=== PATIENT | female | born 1955 | race Caucasian/White ===

== ENCOUNTER → 2017-02-17 | Day surgery (SDC) | payer OTHER ==
[~2017-02-17] MED LIST: ALEV220T14 PO; AMLO5TAB2 PO; CALC1TAB63 PO; CHOL1TAB29 PO; D-20TAB3 PO; DOXA1TAB43 PO; IOHEXOL 180 MG/ML 20 ML VIAL (for RAD DIAG) EPIDURAL ONE; LEVOTAB PO; LIDOCAINE HCL 1% 30 ML VIAL NERV BLOCK ONE; MIDAZOLAM HCL 2 MG/2 ML VIAL IV ONE; MONT10TA2 PO; NAPR220T95 PO; PANT40TA3 PO; PROPOFOL 200 MG/20 ML AMP IV ONE; TRIAMCINOLONE ACETONIDE 40 MG/ML VIAL NERV BLOCK ONE
--- NOTE | 2017-02-22 09:23 | M6 ---
cc: LAVEREN CRAWFORD M.D. DATE: 02/17/2017 Date of : 1955 PROCEDURE Fluoroscopically guided right L5-S1 transforaminal epidural steroid injection. History and physical was completed and signed. Consent was signed. Procedure site was marked. Medications were listed and reconciled. Pain score was recorded. Allergies were noted. Time out was taken. Fluoroscopy time was recorded where applicable. Sedation was administered or directed by Dr. Crawford. The patient was given oxygen. The patient was monitored by a registered nurse. Total procedure time was greater than 15 minutes. PROCEDURE NOTE: An IV was started, blood pressure cuff, pulse oximeter and EKG were applied. The patient was placed in the prone position on a Irineo table, sedated with small amounts of Versed and propofol titrated to effect. Vital signs were monitored and remained stable throughout the procedure. The patient remained responsive throughout the procedure. The lumbar area was scrubbed with antimicrobial solution, prepped with 10% Betadine solution, and draped with sterile drapes. Fluoroscopy was used in both the AP and lateral projections to clearly visualize the right L5-S1 neural foramen. Then separate sterile 22 gauge, 3-1/2 inch Chiba needles were advanced under fluoroscopic guidance into the dorsal-most aspect of each foramen. There was negative aspiration for blood or CSF. There were no reported paresthesias by the patient. There was no washout of 2 mL of Omnipaque. Then after waiting approximately 60 seconds, the patient was slowly given 3 mL of 1% Xylocaine, 3 mL of Omnipaque and 60 milligrams of Kenalog at each location. Following this, the patient was taken to the recovery room with stable vital signs, neurologically intact. W. MD BENTLEY King/BHAVIK /9:50 AM /9:16 AM
== END | disposition home or self-care (01) ==
LOC: PHSDC 08:56
PROVIDERS: ATTEND Pain Medicine Interventional Pain Medicine
DX: M54.5 Low back pain (principal); M79.604 Pain in right leg
CPT/HCPCS: 64483; 99152; J2250; J3301; Q9965

== ENCOUNTER → 2017-05-06 | Day surgery (SDC) | payer OTHER ==
[~2017-05-06] MED LIST changes: -CHOL1TAB29 PO; +INCOBOTULINUMTOXINA 100 UNITS VIAL IM ONE; -IOHEXOL 180 MG/ML 20 ML VIAL (for RAD DIAG) EPIDURAL ONE; -LIDOCAINE HCL 1% 30 ML VIAL NERV BLOCK ONE; -MIDAZOLAM HCL 2 MG/2 ML VIAL IV ONE; -NAPR220T95 PO; -PROPOFOL 200 MG/20 ML AMP IV ONE; +SODIUM CHLORIDE 0.9% 10 ML VIAL ONE; -TRIAMCINOLONE ACETONIDE 40 MG/ML VIAL NERV BLOCK ONE
--- NOTE | 2017-05-08 17:08 | M6 ---
cc: LAVERNE BLUM M.D. DATE: 04/17/2017. DATE OF : 1955 PROCEDURE PERFORMED: Injection botulinum toxin type A (Xeomin) right trapezius and posterior cervical musculature. DESCRIPTION OF THE PROCEDURE IN DETAIL: History and physical was completed and signed. Consent was signed. Procedure site was marked. Medications were listed and reconciled. Pain score was recorded. Allergies were noted. Time out was taken. Fluoroscopy time was recorded where applicable. Blood pressure cuff, pulse oximeter were applied. The patient was placed in the sitting position. The skin over the right trapezius and cervical area was prepped with alcohol. The areas of greatest spasticity were identified. A 27-gauge needle was used to inject a total of 160 units of Xeomin at six different locations corresponding to the areas of greatest spasticity. Following this, the patient was observed in the recovery area with stable vital signs prior to being discharged. W. MD BENTLEY King/MAL /10:43 AM /5:09 PM
== END | disposition home or self-care (01) ==
LOC: PHSDC 09:32
PROVIDERS: ATTEND Pain Medicine Interventional Pain Medicine
DX: M25.511 Pain in right shoulder (principal); M62.838 Other muscle spasm; G24.9 Dystonia, unspecified; I10 Essential (primary) hypertension; K21.9 Gastro-esophageal reflux disease without esophagitis; Z79.899 Other long term (current) drug therapy
CPT/HCPCS: 64616; J0588

== ENCOUNTER → 2017-06-12 | Day surgery (SDC) | payer OTHER ==
[~2017-06-12] MED LIST changes: -DOXA1TAB43 PO; +IBUP-232 PO; -INCOBOTULINUMTOXINA 100 UNITS VIAL IM ONE; +KETOROLAC TROMETHAMINE 30 MG/ML (IVP) VIAL IV PUSH ONE; +LIDOCAINE HCL 1% 30 ML VIAL NERV BLOCK ONE; +MEPERIDINE HCL 25 MG/ML VIAL IV ONE; +PROPOFOL 200 MG/20 ML AMP IV ONE; +methylPREDNISolone ACETATE 80 MG/ML VIAL ONE
--- NOTE | 2017-06-15 06:36 | M6 ---
cc: LAVERNE CRAWFORD M.D. DATE 06/12/2017 DATE OF 1955 PROCEDURE Fluoroscopically guided left S1 epidural steroid injection. History and physical was completed and signed. Consent was signed. Procedure site was marked. Medications were listed and reconciled. Pain score was recorded. Allergies were noted. Time out was taken. Fluoroscopy time was recorded where applicable. Sedation was administered or directed by Dr. Crawford. The patient was given oxygen. The patient was monitored by a registered nurse. Total procedure time was greater than 15 minutes. PROCEDURE NOTE IV was started. Blood pressure cuff, pulse oximeter and EKG were applied. The patient was placed in the prone position on a Irineo table, sedated with small amounts of propofol titrated to effect. Vital signs were monitored and remained stable throughout the procedure. The sacral area was prepped with alcohol and 10% Betadine solution and draped with sterile drapes. Fluoroscopy was used to visualize the S1 neural foramen on the left side. A 3-1/2-inch, 22-gauge Chiba needle was advanced into the foramen under fluoroscopic guidance. There was negative aspiration for blood or any other type of fluid and the patient was given 10 mL of 0.5% Xylocaine, 80 mg of Depo-Medrol. Following this the patient was taken to the recovery room with stable vital signs, neurologically intact. W. Lionel Crawford MD WRM/SSB /9:00 AM /6:31 AM
== END | disposition home or self-care (01) ==
LOC: PHSDC 07:22
PROVIDERS: ATTEND Pain Medicine Interventional Pain Medicine
DX: M54.5 Low back pain (principal); M79.661 Pain in right lower leg
CPT/HCPCS: 62323; 99152; J1040; J1885; J2175

== ENCOUNTER → 2017-06-26 | Day surgery (SDC) | payer OTHER ==
[~2017-06-26] MED LIST changes: +LIDOCAINE HCL 1% 30 ML VIAL INFIL ONE; -LIDOCAINE HCL 1% 30 ML VIAL NERV BLOCK ONE; +TRIAMCINOLONE ACETONIDE 40 MG/ML VIAL NERV BLOCK ONE
--- NOTE | 2017-06-30 10:21 | M6 ---
cc: LAVERNE CRAWFORD M.D. DATE: 06/26/2017 DATE OF : 1955 PROCEDURE Fluoroscopically guided L5-S1 interlaminar epidural steroid injection. PROCEDURE NOTE History and physical was completed and signed. Consent was signed. Procedure site was marked. Medications were listed and reconciled. Pain score was recorded. Allergies were noted. Timeout was taken. Fluoroscopy time was recorded where applicable. Sedation was administered or directed by Dr. Crawford. The patient was given oxygen. The patient was monitored by a registered nurse. Total procedure time was greater than 15 minutes. An IV was started, blood pressure cuff, pulse oximeter and EKG were applied. The patient was placed in the prone position on a Irineo table, sedated with small amounts of propofol titrated to effect. Vital signs were monitored and remained stable throughout the procedure. The lumbar area was prepped with alcohol and 10% Betadine solution, draped with sterile drapes. Fluoroscopy was used to visualize the L5-S1 interlaminar space. The skin was infiltrated with 1% Xylocaine using a 27-gauge needle. Then a 3-1/2 inch, 18-gauge Amaya needle was advanced using fluoroscopic guidance and the [id number] technique into the epidural space at L5-S1 slightly to the left of the midline. There was negative aspiration for blood or any other type of fluid and the patient was given 10 mL of 0.5% Xylocaine, 80 mg of Depo-Medrol. Following this the patient was taken to the recovery room with stable vital signs, neurologically intact. W. MD BENTLEY King/TEENA /8:19 AM /10:12 AM
== END | disposition home or self-care (01) ==
LOC: PHSDC 07:11
PROVIDERS: ATTEND Pain Medicine Interventional Pain Medicine
DX: M54.5 Low back pain (principal)
CPT/HCPCS: 62323; 99152; J1040; J1885; J2175; J3301

== ENCOUNTER 2017-10-01 06:04 | Inpatient (IN) | payer OTHER ==
[~2017-10-01] VITALS: Ht 172.7 cm; Wt 70.8 kg
[~2017-10-01 06:04] MED LIST changes: -KETOROLAC TROMETHAMINE 30 MG/ML (IVP) VIAL IV PUSH ONE; -LEVOTAB PO; -LIDOCAINE HCL 1% 30 ML VIAL INFIL ONE; -MEPERIDINE HCL 25 MG/ML VIAL IV ONE; -PANT40TA3 PO; -PROPOFOL 200 MG/20 ML AMP IV ONE; -SODIUM CHLORIDE 0.9% 10 ML VIAL ONE; +TRAM50TA PO; -TRIAMCINOLONE ACETONIDE 40 MG/ML VIAL NERV BLOCK ONE; +ZANT150T2 PO; -methylPREDNISolone ACETATE 80 MG/ML VIAL ONE
[2017-10-01] MEDS ORDERED: SODIUM CHLORID 0.9% 500 ML IV PRN (06:45)
[2017-10-01] MEDS ORDERED: METOPROLOL TARTRATE 25 MG TAB PO PRN (06:45)
[2017-10-01] MEDS ORDERED: LACTATED RINGER'S 1000 ML IV PRN ×2 (06:45)
[2017-10-01] MEDS ORDERED: CHLORHEXIDINE GLUCONATE 2 % 1 PACK (2 CLOTHS) TOPICAL PRN (06:45)
[2017-10-01] MEDS ORDERED: POVIDONE IODINE 5% (ANTISEPSIS KIT) 4 APPLICATIONS EACH NARE PRN (06:45)
[2017-10-01] MEDS ORDERED: DIPH25TA31 PO (06:47)
[2017-10-01] MEDS ORDERED: GENTAMICIN SULFATE 80 MG/2 ML VIAL ONE (06:48)
[2017-10-01] MEDS ORDERED: THROMBIN (TOPICAL) 5,000 UNIT VIAL ONE (06:48)
[2017-10-01] MEDS ORDERED: GELFOAM SIZE 100 ONE (06:48)
[2017-10-01] MEDS ORDERED: LIDOCAINE 1%/EPINEPHrine 1:100,000 SOLN 50 ML VIAL ONE (06:48)
[2017-10-01] MEDS ORDERED: ACETAMINOPHEN 1000 MG/100 ML 100 ML IV ONE (08:02)
[2017-10-01] MEDS ORDERED: BUPIVACAINE LIPOSOME PF 1.3% 20 ML VIAL ONE (08:27)
[2017-10-01] MEDS ORDERED: ARTIFICIAL TEARS OPTH OINT 3.5 APPLIC/3.5 GM TUBO ONE (08:48)
[2017-10-01] MEDS: ceFAZolin 1,000 MG/NS 100 ML IV SCH ×4 (09:22→13:22)
[2017-10-01] MEDS ORDERED: PROPOFOL 500 MG/50 ML INJ 100 ML ONE (10:26)
[2017-10-01] MEDS ORDERED: LIDOCAINE HCL 1% PF 5 ML SYRINGE OTHER ONE (12:00)
[2017-10-01] MEDS ORDERED: ONDANSETRON HCL 4 MG/2 ML VIAL IV PUSH ONE (12:00)
[2017-10-01] MEDS ORDERED: LACTATED RINGER'S 1000 ML INJ 2,000 ML IV ONE (12:00)
[2017-10-01] MEDS ORDERED: NEOSTIGMINE 3 MG/3 ML SYR IV ONE (12:00)
[2017-10-01] MEDS ORDERED: NORMOSOL R INJ 1,000 ML IV ONE (12:00)
[2017-10-01] MEDS ORDERED: PHENYLEPHRINE HCL 10 MG/ML VIAL IV ONE (12:00)
[2017-10-01] MEDS ORDERED: ROCURONIUM INJ 50 MG/5 ML SYRINGE IV PUSH ONE (12:00)
[2017-10-01] MEDS ORDERED: PHENYLEPH/NS 1000 MCG/10 ML SYR IV ONE (12:00)
[2017-10-01] MEDS ORDERED: ePHEDrine/NS 25 MG/5 ML SYR IV ONE (12:00)
[2017-10-01] MEDS ORDERED: ceFAZolin INJ 1,000 MG VIAL IV ONE (12:00)
[2017-10-01] MEDS ORDERED: PROPOFOL 200 MG/20 ML AMP IV ONE (12:00)
[2017-10-01] MEDS ORDERED: DEXAMETHASONE SOD PHOS 4 MG/ML VIAL IV ONE (12:00)
[2017-10-01] MEDS ORDERED: MIDAZOLAM HCL 2 MG/2 ML VIAL IV ONE (12:00)
[2017-10-01] MEDS ORDERED: GLYCOPYRROLATE 1 MG/5 ML SYRINGE IV PUSH ONE (12:00)
--- NOTE | 2017-10-01 14:13 | RADRPT ---
EXAM DATE/TIME: 10/01/2017 09:34 [facility] COMPARISON: No previous studies available for comparison. INDICATIONS : L4-L5 laminectomy with interspinous decompressive device. MEDICAL HISTORY : None. SURGICAL HISTORY : None. ENCOUNTER: Initial ACUITY: 1 day PAIN SCORE: Non-responsive. LOCATION: Lumbar spine. FINDINGS: Hardware is noted between the posterior elements of L4 and L5. There is marked disc space narrowing a t L5-S1. CONCLUSION: 1. Posterior element hardware at L4 and L5. 2. Marked disc space narrowing L5-S1. Amor Kate MD on October 01, 2017 at 14:10 Board Certified Radiologist. This report was verified electronically.
[2017-10-01] MEDS ORDERED: DO NOT ADM ANY ANTICOAGULANT DRUGS PRN (14:21)
[2017-10-01] MEDS ORDERED: ACETAMINOPHEN/HYDROcodone 325 MG/10 MG TAB PO PRN (14:45)
[2017-10-01] MEDS ORDERED: SODIUM CHLORIDE 0.9% FLUSH 5 ML FLUSH IVF PRN (14:45)
[2017-10-01] MEDS ORDERED: MORPHINE SULFATE 4 MG/ML INJ IV PUSH PRN (14:45)
[2017-10-01] MEDS ORDERED: HYDROmorphone HCL PF 1 MG/ML VIAL IV PUSH PRN (14:45)
[2017-10-01] MEDS ORDERED: oxyCODONE/ACETAMINOPHEN 5 MG/325 MG TAB PO PRN (14:45)
[2017-10-01] MEDS ORDERED: ONDANSETRON HCL 4 MG/2 ML VIAL IV PUSH PRN (14:45)
[2017-10-01] MEDS ORDERED: NALOXONE HCL 0.4 MG/ML AMP IV PUSH PRN (14:45)
[2017-10-01 15:00] VITALS: BP 108/62; PULSE 60; RESP 18; TEMP 95.7; O2SAT 99
[2017-10-01] MEDS: 1/2 NS + KCL 20 MEQ INJ 1,000 ML IV SCH (15:00)
[2017-10-01] MEDS ORDERED: *morphine SULFATE 8 MG/ML PERIprocedure ONLY ONE (15:11)
[2017-10-01 20:00] VITALS: BP 123/62; PULSE 65; RESP 16; TEMP 97.6; O2SAT 100
[2017-10-01] MEDS ORDERED: MONTELUKAST SODIUM 10 MG TAB PO SCH (21:00)
[2017-10-01] MEDS: DOCUSATE SODIUM 100 MG CAP PO SCH (22:13)
[2017-10-01] MEDS: KETOROLAC TROMETHAMINE 30 MG/ML (IVP) VIAL IV PUSH SCH (22:14)
[2017-10-01] MEDS: SODIUM CHLORIDE 0.9% FLUSH 5 ML FLUSH IVF SCH (22:15)
--- NOTE | 2017-10-01 23:58 | PD.OP ---
Operative Report Date of Surgery: Oct 01, 2017 Preoperative Diagnosis: (1) Herniated nucleus pulposus, lumbar (2) Lumbar canal stenosis (3) Lumbar radiculopathy Severe L4 5 canal stenosis Left L5-S1 herniated nucleus pulposus Left L5 radiculopathy Left S1 radiculopathy Postoperative Diagnosis: (1) Herniated nucleus pulposus, lumbar (2) Lumbar canal stenosis (3) Lumbar radiculopathy Severe L4 5 canal stenosis Left L5-S1 herniated nucleus pulposus Left L5 radiculopathy Left S1 radiculopathy Procedure: 1. Bilateral L4-5 decompressive semi-hemilaminectomy, medial facetectomy 2. Resection left L4-5 synovial cyst 3. Placement L4-5 interspinous process decompression device (Coflex) 4. Left L5-S1 revision semi-laminectomy, medial facetectomy, resection sequestered posterior herniated nucleus pulposus, lysis of adhesions Anesthesia: Gen. Surgeon: Kasi Aranda Wedding Day Coordinator(s): Chely Figueredo Operation and Findings: Findings: Relatively large left L4-5 level synovial cyst with significant thecal sac and exiting nerve root compression with moderate adhesions. Chronic-appearing sequestered herniated nucleus pulposis with fragments of cartilaginous endplate with significant surrounding adhesions beneath the central to left L5-S1 thecal sac and exiting S1 nerve root. Procedure in detail: The patient was brought into the operating room and general endotracheal anesthesia induced without difficulty. SIDNEY hose and sequential compression devices were placed. The Castillo catheter was placed. Lines were established by anesthesia. The patient was positioned on the [facility] Irineo table with the side bolsters and all extremities appropriately padded. Appropriate timeout procedure was performed with all personnel present and in agreement. 1% Xylocaine with epinephrine was used for local infiltration over the incision site which was made at the midline L4-S1 level. The incision was carried sharply down to the lumbodorsal fascia which was incised adjacent to the spinous processes. Vu elevator was used for subperiosteal elevation of paraspinous musculature and fascia away from the lamina and spinous process. The deep self-retaining retractor was placed. The appropriate levels were verified with intraoperative C-arm. Microscope was moved into place and used for the remainder of the procedure including the closure. The supraspinous and residual interspinous ligament at the L4-L5 level was released with the Bovie from the bone margins and retracted along with the paraspinous musculature and fascia. There appeared to be at least mild instability of the L4-5 facet prior to the Coflex placement. Great care was taken to remove as little of the facet as possible during the decompression portion of the procedure. The inferior edge of the bilateral L4 and superior edge of the bilateral L5 lamina was resected with the TPS drill and the Kerrison rongeur and squared off laterally on each side to accommodate the interspinous process decompression device. The hypertrophied ligamentum flavum was elevated away from the thecal sac with the thin ligament dissector and resected with the 15 blade knife and the Kerrison rongeur out to the level of the deep lateral recess to completely decompress the thecal sac and exiting nerve roots. The exiting nerve roots were followed to the level of the medial pedicle to ensure that they were well decompressed. At each level on each side, the superior aspect of the more inferior facet along with hypertrophied ligament at the medial foramen were removed with the Kerrison rongeur to perform the bilateral foraminotomy. The interspinous ligament at the L4 5 level was very deteriorated, with the spinous processes mostly [id number]. The Mccoy Reis rongeur was used to remove the remaining interspinous ligament and decorticate the inferior L 4 and superior L 5 spinous process edge. The TPS drill was used to flatten out the dorsal aspect of the L5 and L4 lamina, taking care not to compromise the integrity of the lamina. The 12 mm Coflex trial was then placed and appeared to give good support to the spinous processes and facets. Any remaining soft tissue along the interspinous region and epidural space and interlaminar region was carefully removed to provide a clean tract for the Coflex device. The 12mm Coflex device was then placed at the L4 5 level with the anterior aspect of the device placed as anterior as possible without compromising the thecal sac. The side wings were crimped at the L4 and L5 levels to secure the device. The placement was checked with intraoperative C-arm and felt to be satisfactory. A blunt hook was passed beneath the anterior aspect of the Coflex device to make certain that there was no compromise of the spinal canal. There appeared to be excellent support of the lamina and facet after the device was placed. Next, attention was turned to the left L5-S1 level. There was a previous decompressive semi-laminectomy. An additional portion of the inferior left L5 and superior left S1 lamina along with a mild amount of the medial facet was removed with the TPS drill and the Kerrison rongeur to gain adequate access to the thecal sac and lateral recess. Residual ligamentum flavum was removed with the Kerrison rongeur. The microdissectors were used to release adhesions along the lateral thecal sac. The thecal sac and exiting left S1 nerve root which was traced down along the S1 1 medial pedicle were gently retracted medially. There was a rather large chronic-appearing sequestered disc fragment which was very adherent to the ventral thecal sac and exiting left S1 nerve root. Quite a bit of very careful dissection under high powered microscope magnification was necessary to free up the fragments of herniated disc along with some pieces of cartilaginous endplate which were very adherent to the neural structures. Once the adhesions were released, the reverse curette and long blunt nerve hook was used to push the fragments away from the thecal sac where they were further removed with the micro-pituitary biopsy forceps. The nerve roots appeared well decompressed at the end of the procedure. No spinal fluid leakage was encountered. The disc and annulus at the L4 5 level was visualized to make sure that there was no significant disc displacement or herniation. The annulus was cauterized with the bipolar to shrink down the small amount of bulging annulus. Bleeding was carefully controlled with the bipolar forceps. The closure was performed with 0 Vicryl interrupted for the deep and superficial fascia, with 3-0 Vicryl interrupted subcutaneous closure, and 4-0 Vicryl running subcuticular closure. A dressing of sterile Mastisol, Steri- Strips, and Primapore was placed. The patient was taken to recovery room in stable condition. All counts were correct at the end of the case. Estimated blood loss was 150 cc. Specimen of the synovial cyst was sent to pathology for permanent section. Kasi Aranda MD Oct 01, 2017 23:58
[2017-10-02] VITALS: BP 111/56; PULSE 77; RESP 17; TEMP 97.6; O2SAT 99
[2017-10-02] MEDS: 1/2 NS + KCL 20 MEQ INJ 1,000 ML IV SCH (01:49)
[2017-10-02 04:10] VITALS: BP 119/65; PULSE 66; RESP 16; TEMP 97.6; O2SAT 99
[2017-10-02] MEDS: KETOROLAC TROMETHAMINE 30 MG/ML (IVP) VIAL IV PUSH SCH ×2 (06:10→13:15)
[2017-10-02 06:29] LABS: AUTOMATED NEUTROPHIL # 7.7 TH/MM3 (1.8-7.7); BASOPHIL % 0.3 % (0.0-2.0); EOSINOPHIL % 0.4 % (0.0-4.0); HEMATOCRIT 31.6 % (35.0-46.0); HEMO FLAGS DIFF FINAL; LYMPH % 16.3 % (9.0-44.0); LYMPHOCYTE # 1.7 TH/MM3 (1.0-4.8); MEAN CELL VOLUME 92.1 FL (80.0-100.0); MEAN CORPUSCULAR HEMOGLOBIN 32.6 PG (27.0-34.0); MEAN CORPUSCULAR HGB CONC 35.4 % (32.0-36.0); MONO % 7.7 % (0.0-8.0); NEUT % 75.3 % (16.0-70.0); PLATELET COUNT 227 TH/MM3 (150-450); RED BLOOD COUNT 3.43 MIL/MM3 (4.00-5.30); WHITE BLOOD COUNT 10.3 TH/MM3 (4.0-11.0)
[2017-10-02 07:00] LABS: BICARBONATE 26.4 MEQ/L (21.0-32.0); POTASSIUM 3.8 MEQ/L (3.5-5.1)
[2017-10-02 07:39] VITALS: BP 114/57; PULSE 78; RESP 17; TEMP 98.7; O2SAT 98
[2017-10-02] MEDS: DOCUSATE SODIUM 100 MG CAP PO SCH (08:40)
[2017-10-02] MEDS ORDERED: HYDR-3583 PO (08:45)
--- NOTE | 2017-10-02 08:47 | HHI.DCPOC ---
Discharge Care Plan Diagnosis: (1) Lumbar radiculopathy (2) Lumbar canal stenosis (3) Herniated nucleus pulposus, lumbar Your Health Problems Are: Difficulty with ADL Incision/Drains Chronic Pain Goals to Promote Your Health * To prevent worsening of your condition and complications * To maintain your health at the optimal level Directions to Meet Your Goals Take your medications as prescribed Follow your dietary instruction Follow activity as directed Keep your appointments as scheduled Take your immunizations and boosters as scheduled If your symptoms worsen call your PCP, if no PCP go to Urgent Care Center or Emergency Room Smoking is Dangerous to Your Health. Avoid second hand smoke Call the 24-hour hour crisis hotline for domestic abuse at Kasi Aranda MD Oct 02, 2017 08:46
[2017-10-02] MEDS: SODIUM CHLORIDE 0.9% FLUSH 5 ML FLUSH IVF SCH (08:48)
--- NOTE | 2017-10-02 08:51 | HHI.DS ---
Discharge Summary Admission Date Oct 01, 2017 at 06:04 Discharge Date: Oct 02, 2017 Admitting Diagnosis Lumbar stenosis Lumbar radiculopathy Lumbar disc herniation Lumbar synovial cyst (1) Synovial cyst of lumbar spine Diagnosis: Secondary ICD Code: M71.38 - Other bursal cyst, other site (2) Lumbar canal stenosis Diagnosis: Secondary ICD Code: M48.061 - Spinal stenosis, lumbar region without neurogenic claudication (3) Herniated nucleus pulposus, lumbar Diagnosis: Secondary ICD Code: M51.26 - Other intervertebral disc displacement, lumbar region (4) Lumbar radiculopathy Diagnosis: Principal ICD Code: M54.16 - Radiculopathy, lumbar region Procedures Date of Surgery: Oct 01, 2017 Preoperative Diagnosis: (1) Herniated nucleus pulposus, lumbar (2) Lumbar canal stenosis (3) Lumbar radiculopathy Severe L4 5 canal stenosis Left L5-S1 herniated nucleus pulposus Left L5 radiculopathy Left S1 radiculopathy Postoperative Diagnosis: (1) Herniated nucleus pulposus, lumbar (2) Lumbar canal stenosis (3) Lumbar radiculopathy Severe L4 5 canal stenosis Left L5-S1 herniated nucleus pulposus Left L5 radiculopathy Left S1 radiculopathy Procedure: 1. Bilateral L4-5 decompressive semi-hemilaminectomy, medial facetectomy 2. Resection left L4-5 synovial cyst 3. Placement L4-5 interspinous process decompression device (Coflex) 4. Left L5-S1 revision semi-laminectomy, medial facetectomy, resection sequestered posterior herniated nucleus pulposus, lysis of adhesions CBC/BMP: 10/02/17 0609 10/02/17 0607 Significant Findings Laboratory Tests Test 10/02/17 06:07 10/02/17 06:09 Calcium Level 8.4 MG/DL (8.5-10.1) Red Blood Count 3.43 MIL/MM3 (4.00-5.30) Hemoglobin 11.2 GM/DL (11.6-15.3) Hematocrit 31.6 % (35.0-46.0) Neutrophils (%) (Auto) 75.3 % (16.0-70.0) PE at Discharge Sensation is intact to light touch in the lower extremities. Strength is normal in major flexion and extension groups inversion/eversion of the foot in the right and left lower extremity. There is no ankle clonus. Plantar response is flexor on the right and left. Straight leg raise is negative to 90 degrees on the right and left. The patient gets in and out of chair without significant difficulty. Her gait is normal. Hospital Course Patient admitted for the above noted procedure performed without complication. Postoperative day #1 afebrile, vital signs stable, follow-up CBC and BMP satisfactory. Tolerating diet. Lower extremity sensory motor exam normal Respirations clear to auscultation. Cardiac exam regular without murmur. Stable for discharge home postop day #1 Instructions given Drain discontinued Pt Condition on Discharge: Good Discharge Disposition: Discharge Home Discharge Instructions DIET: Follow Instructions for: As Tolerated, No Restrictions ACTIVITIES You can perform: Weight Bearing As Madai Activities to Avoid: Lifting/Bending, Strenuous Activity New Medications: Hydrocodone/Acetaminophen (Hydrocodone-Acetamin 10-325 mg) 10 Mg-325 Mg Tablet 1 TAB PO Q4H PRN for PAIN SCALE 6 TO 10, #30 TAB 0 Refills Continued Medications: Acetaminophen/Diphenhydramine (Acetaminophen Pm Caplet) 500 Mg-25 Mg Tablet 1 TAB PO DIRECTED Amlodipine (Amlodipine) 5 Mg Tab 10 MG PO DAILY for Blood Pressure Management, #30 TAB 0 Refills Calcium Carbonate-Cholecalciferol (Calcium 600+D3) 1 Tab Tab 1 TAB PO DAILY Cholecalciferol (D-2000 Maximum Strength) 2,000 Unit Tab 2000 UNITS PO DAILY for Nutritional Supplement, #30 TAB 0 Refills Montelukast (Singulair) 10 Mg Tab 10 MG PO HS, #30 TAB 0 Refills Ranitidine (Zantac) 150 Mg Tab 150 MG PO DAILY PRN for INDIGESTION, #30 TAB 0 Refills Tramadol (Tramadol) 50 Mg Tab 50 MG PO Q6H PRN for PAIN, #60 TAB 0 Refills Discontinued Medications: Ibuprofen (Ibuprofen) 600 Mg Tab 600 MG PO Q8H PRN for PAIN, TAB 0 Refills Naproxen Sodium (Aleve Arthritis) 220 Mg Tab 220 MG PO BID, TAB Kasi Aranda MD Oct 02, 2017 08:51
[2017-10-02] MEDS ORDERED: CHOLECALCIFEROL (VIT D3) 1000 UNIT TAB PO SCH (09:00)
[2017-10-02] MEDS ORDERED: PANTOPRAZOLE SOD 40 MG DELAYED RELEASE TAB PO SCH (09:00)
[2017-10-02] MEDS ORDERED: CALCIUM CARBONATE CHOLECALCIFEROL PO SCH (09:00)
[2017-10-02] MEDS ORDERED: amLODIPine BESYLATE 5 MG TAB PO SCH (09:00)
--- NOTE | 2017-10-02 09:00 | HHI.NSPN ---
History Chief Complaint: Back is sore Interval History 10/01: The patient presented to [facility] to have a bilateral L4-5 decompressive semi-hemilaminectomy and facetectomy with resection of a synovial cyst and placement of a Coflex. She also had a revision of a prior left L5-S1 semi-laminectomy and facetectomy. Post-operatively the patient was admitted to a regular med/surg floor. 10/02: The patient is seen in rounds with Dr Aranda this morning. She states that her back is sore and is a 3 or 4 out of 10 when not moving. She denies any nausea. She has no pain into the lower extremities. When asked about any numbness or tingling to the lower extremities she replies "not really." The undersigned acts as a scribe for the remainder of this note. Exam Results 09/30/17 09/30/17 10/01/17 10/01/17 10/02/17 10/02/17 06:00 18:00 06:00 18:00 06:00 18:00 Intake Total 3244 ml 1916 ml Output Total 3360 ml 2480 ml Balance -116 ml -564 ml Intake Oral 960 ml IV Total 44 ml 956 ml Other 3200 ml Output Urine Total 3200 ml 2450 ml Drainage Total 10 ml 30 ml Estimated Blood Loss 150 ml Vital Signs Date Time Temp Pulse Resp B/P (MAP) Pulse Ox O2 Delivery O2 Flow Rate FiO2 10/02/17 07:39 98.7 78 17 114/57 (76) 98 10/02/17 07:04 18 10/02/17 04:10 97.6 66 16 119/65 (83) 99 10/02/17 00:16 Room Air 10/02/17 00:00 97.6 77 17 111/56 (74) 99 10/01/17 22:57 18 10/01/17 20:00 97.6 65 16 123/62 (82) 100 10/01/17 15:28 97.5 58 18 111/58 (75) 99 Nasal Cannula 2 10/01/17 15:15 60 20 116/62 (80) 99 Nasal Cannula 2 10/01/17 15:00 65 19 114/63 (80) 100 Nasal Cannula 2 10/01/17 15:00 95.7 60 18 108/62 (77) 99 10/01/17 14:45 91 15 122/69 (86) 99 Nasal Cannula 2 10/01/17 14:30 98 20 125/69 (87) 99 Nasal Cannula 2 10/01/17 14:22 97.7 111 16 133/74 (93) 100 Nasal Cannula 2 10/01/17 06:45 98.8 64 18 138/81 (100) 98 Physical Examination SKIN: The dressing to the lumbar surgical incision is dry & intact. There is no evident drainage or erythema from the ADA drain insertion site. MUSCULOSKELETAL: HERNÁNDEZ w/o difficulty. The lumbar surgical incision is mildly TTP. NEUROLOGICAL: AAOx3. Speech clear & appropriate. Follows simple commands w/o difficulty. Sensation is intact to light touch to the BLE. Motor strength is 5/5 to all major flexion & extension muscle groups to the BLE Lab, Micro, Other Results Recent Impressions Lumbar Spine X-Ray 10/01/17 0000 Signed Impressions: Service Date/Time: September 09:34 - CONCLUSION: 1. Posterior element hardware at L4 and L5. 2. Marked disc space narrowing L5- S1. Amor Kate MD Laboratory Tests Test 10/02/17 06:07 10/02/17 06:09 Blood Urea Nitrogen 8 MG/DL Creatinine 0.61 MG/DL Random Glucose 92 MG/DL Calcium Level 8.4 MG/DL Sodium Level 138 MEQ/L Potassium Level 3.8 MEQ/L Chloride Level 106 MEQ/L Carbon Dioxide Level 26.4 MEQ/L Anion Gap 6 MEQ/L Estimat Glomerular Filtration Rate 100 ML/MIN White Blood Count 10.3 TH/MM3 Red Blood Count 3.43 MIL/MM3 Hemoglobin 11.2 GM/DL Hematocrit 31.6 % Mean Corpuscular Volume 92.1 FL Mean Corpuscular Hemoglobin 32.6 PG Mean Corpuscular Hemoglobin Concent 35.4 % Red Cell Distribution Width 12.0 % Platelet Count 227 TH/MM3 Mean Platelet Volume 8.3 FL Neutrophils (%) (Auto) 75.3 % Lymphocytes (%) (Auto) 16.3 % Monocytes (%) (Auto) 7.7 % Eosinophils (%) (Auto) 0.4 % Basophils (%) (Auto) 0.3 % Neutrophils # (Auto) 7.7 TH/MM3 Lymphocytes # (Auto) 1.7 TH/MM3 Monocytes # (Auto) 0.8 TH/MM3 Eosinophils # (Auto) 0.0 TH/MM3 Basophils # (Auto) 0.0 TH/MM3 CBC Comment DIFF FINAL Differential Comment Medical Decision Making Impression and Plan Postoperative Diagnosis: (1) Herniated nucleus pulposus, lumbar (2) Lumbar canal stenosis (3) Lumbar radiculopathy Severe L4 5 canal stenosis Left L5-S1 herniated nucleus pulposus Left L5 radiculopathy Left S1 radiculopathy Labs reviewed for today. POD #1 () s/p : 1. Bilateral L4-5 decompressive semi-hemilaminectomy, medial facetectomy 2. Resection left L4-5 synovial cyst 3. Placement L4-5 interspinous process decompression device (Coflex) 4. Left L5-S1 revision semi-laminectomy, medial facetectomy, resection sequestered posterior herniated nucleus pulposus, lysis of adhesions Plan: Discussed plan of care, to include discharge instructions, with the patient & Nursing. D/C Castillo. D/C IVF. D/C ADA drain. Mobilise patient w/assistance as needed. PT eval & tx. Will discharge patient home this afternoon. Willy Lynch Oct 02, 2017 09:00
[2017-10-02 10:26] VITALS: O2SAT 97
[2017-10-02 11:40] VITALS: BP 108/56; PULSE 59; RESP 17; TEMP 98.8; O2SAT 99
== END 2017-10-02 16:38 | disposition home or self-care (01) | DRG 518 ==
LOC: HSDI 06:04 → N06B 15:44
PROVIDERS: ADMIT Neurological Surgery; ATTEND Neurological Surgery
PROC: 01NB0ZZ Release Lumbar Nerve, Open Approach (ICD-10-PCS; 2017-10-01)
PROC: 0SB20ZZ Excision of Lumbar Vertebral Disc, Open Approach (ICD-10-PCS; 2017-10-01)
PROC: 0MT Bursae and Ligaments, Resection (ICD-10-PCS; 2017-10-01)
PROC: 0SH00BZ Insertion of Interspinous Process Spinal Stabilization Device into Lumbar Vertebral Joint, Open Approach (ICD-10-PCS; principal; 2017-10-01 08:21)
DX: M48.061 Spinal stenosis, lumbar region without neurogenic claudication (principal); M51.16 Intervertebral disc disorders with radiculopathy, lumbar region; M71.38 Other bursal cyst, other site; I10 Essential (primary) hypertension; K21.0 Gastro-esophageal reflux disease with esophagitis
CPT/HCPCS: 72020; 76000; 80048; 85025; 88304; 94150; C1713; C9290; J0131; J0690; J1100; J1580; J1885; J2250; J2270; J2370; J2405; J2710; J3010; J7120